=== PATIENT | female | born 1985 | race Caucasian/White ===

== ENCOUNTER 2017-07-24 06:07 | Inpatient (IN) | payer BC ==
--- NOTE | 2017-07-23 23:55 | HP ---
General Information - General Information Maternal Age: 31 Grav: 2 Para: 1 SAB: 0 IEA: 0 Estimated Due Date: 07/27/17 Determined By: Early Ultrasound Gestational Age in Weeks and Days: 38 Weeks and 6 Days Maternal Blood Type and Rh: A Positive - Results this Serology/RPR Result: Non-Reactive Rubella Result: Immune HBsAg Result: Negative HIV Result: Negative GBS Culture Result: Negative Past Medical History Delivery History: Hx C/Section, See Records Pertinent Past Medical History: See Records - History of pulmonary embolism Past Medical History Comment: History of Pulmonary embolism, Anxiety, tension Headaches Pertinent Past Surgical History: See Records - Section 2014 Pertinent Family History: See Records - Antepartal Records Antepartal Records: Reviewed, Complicated by: - Prior Section , History of PE on anticoagulation Review of Systems CV Complaint: No Respiratory: Shortness of Breath: No Gastrointestinal: No Nausea/Vomiting, Normal Bowel Movement Genitourinary: No Dysuria, No Bleeding, No Leaking Fluid Musculoskeletal: No Complaint Neurological: No Headache, No Visual Changes Movement: Normal Exam Allergies/Adverse Reactions: Allergies azithromycin Allergy (Verified 07/23/17 14:39) Hives Penicillins Allergy (Verified 07/23/17 14:39) Hives Sulfa (Sulfonamide Antibiotics) Allergy (Verified 07/23/17 14:39) Hives Temp 98.7 BP 130/70 pulse 78 RR 18 Weight 220lbs Height 69 inches - Measurements Height: 5 ft 9 in Weight: 220 lb Body Mass Index (BMI): 32.5 Pre- Weight: 160 lb - Exam Abdomen: No Upper Quadrant Pain Breast: Breast Exam Deferred CVA: No CVA Tenderness Extremities: No Edema Heart: Normal Rhythm/Heart Sounds HEENT: No Significant Findings Lungs: Clear Bilaterally Rectal: Rectal Exam Deferred Reflexes: DTR 2+ Thyroid: No Thyromegaly - Abdominal Exam Abdomen Exam: Non-Tender, Fundal Height Consistent with Dates - Membranes Membrane Status: Intact EFM Findings - External Monitor Findings Baseline Heart Rate: 140 Assessment/Plan - Reason for Visit Reason for Visit: at 39 2/7 weeks for Repeat Section and bilateral tubal ligation - Obstetrical Risk Factors Risk Factors Comment: Prior , History of PE on anticoagulation, desires sterilization - Plan Plan: Expedite C/S Delivery, Antibiotic Prophylaxis - Date/Time of Admission Date of Admission: 07/24/17 Time of Admission: 06:45
[2017-07-24] MEDS ORDERED: Sodium Citrate/Citric Acid* 15 ML UDC ONE (07:20)
[2017-07-24] MEDS ORDERED: ceFOXitin 2 GM IVPREMIX* 50 ML IVPB ONE (07:30)
[2017-07-24] MEDS ORDERED: Morphine PF AMP (0.5MG/ML)* 5 MG/10 ML AMP ONE (07:40)
[2017-07-24] MEDS ORDERED: OXYTOCIN* 10 UNITS/ML 1 ML VIAL ONE (07:40)
[2017-07-24] MEDS ORDERED: Buffered Lidocaine 0.9% SYRIN* 5 ML/SYR SYRINGE INTRADERM ONE (07:43)
[2017-07-24] MEDS ORDERED: Sodium Citrate/Citric Acid* 15 ML UDC PO ONE (07:43)
[2017-07-24] MEDS ORDERED: fentaNYL* 50 MCG/ML 2 ML VIAL (100 MCG VIAL) IV PRN (07:44)
[2017-07-24] MEDS ORDERED: Naloxone* 0.4 MG/ML 1 ML VIAL IV PRN ×2 (07:44→09:10)
[2017-07-24] MEDS ORDERED: ceFOXitin 2 GM IVPREMIX* 2 GM/50 ML BAG IVPB ONE (08:00)
[2017-07-24] MEDS ORDERED: Famotidine IV* 10 MG/ML 2 ML (20 mg) ONE (08:23)
[2017-07-24] MEDS ORDERED: Phenylephrine IV* 40 MCG/ML 10 ML SYRINGE ONE (08:24)
[2017-07-24] MEDS ORDERED: Ondansetron INJ* 2 MG/ML VIAL ONE (08:45)
[2017-07-24] MEDS ORDERED: Scopolamine PATCH Remove* 1 NOTE MISC PATCH OFF PRN (09:10)
[2017-07-24] MEDS ORDERED: DiMENhydriNATE IV* 50 MG/ML VIAL IV PUSH PRN (09:10)
[2017-07-24] MEDS ORDERED: PROCHLORPERAZINE INJ 5 MG/ML 2 ML VIAL IV PRN (09:10)
[2017-07-24] MEDS ORDERED: diPHENhydraMINE IV* 50 MG/ML 1 ml VIAL (BENADRYL) IV PRN (09:10)
[2017-07-24] MEDS ORDERED: Scopolamine 1.5 mg* PATCH TRANSDERM PRN (09:10)
[2017-07-24] MEDS ORDERED: HYDROcodone/ACETAMIN 5-325 MG* 1 TAB PO PRN ×2 (09:10)
[2017-07-24] MEDS ORDERED: Ondansetron INJ* 2 MG/ML VIAL IV PRN (09:10)
[2017-07-24] MEDS ORDERED: Nalbuphine* 20 MG/ML 1 ML VIAL IV PRN (09:10)
[2017-07-24] MEDS ORDERED: Ketorolac INJ* 30 MG/ML 1 ML VIAL ONE (09:16)
[2017-07-24] MEDS ORDERED: Witch Hazel PAD* JAR TOPICAL PRN (09:39)
[2017-07-24] MEDS ORDERED: Glycerin ADULT SUPP PR PRN (09:39)
[2017-07-24] MEDS ORDERED: Ibuprofen TAB* 600 MG PO PRN (09:39)
[2017-07-24] MEDS ORDERED: Dibucaine 1% 28.35 GM TUBE PR PRN (09:39)
[2017-07-24] MEDS ORDERED: Zolpidem TAB* 5 MG PO PRN (09:39)
[2017-07-24] MEDS ORDERED: Nalbuphine* 20 MG/ML 1 ML VIAL IV SCH (12:00)
[2017-07-24] MEDS: Simethicone TAB* 80 MG TAB.CHEW PO SCH ×3 (12:19→22:05)
[2017-07-24] MEDS: Ketorolac INJ* 30 MG/ML 1 ML VIAL IV SCH ×3 (13:25→23:19)
[2017-07-24] MEDS: Acetaminophen TAB* 325 MG PO SCH ×4 (13:51→22:06)
[2017-07-24] MEDS: Docusate CAP* 100 MG PO SCH ×2 (13:51→22:06)
[2017-07-24] MEDS: Enoxaparin(*) 40 MG/0.4 ML SYR SUBCUT SCH (16:42)
[2017-07-24] MEDS ORDERED: diPHENhydraMINE PO* 25 MG PO ONE (23:00)
[2017-07-25] MEDS ORDERED: Acetaminophen TAB* 325 MG PO PRN (00:16)
[2017-07-25] MEDS ORDERED: Ibuprofen TAB* 600 MG ONE (00:36)
[2017-07-25] MEDS: Ibuprofen TAB* 600 MG PO PRN ×4 (00:38→20:37)
[2017-07-25] MEDS: oxyCODONE/Acetamin 5/325 MG* TAB PO PRN ×4 (02:23→17:26)
--- NOTE | 2017-07-25 03:12 | OP ---
DATE OF OPERATION: 07/24/17 - ROOM #117 DATE OF : 81 SURGEON: Amari Doty MD INFECTION PREVENTION PRACTITIONER: Ro Subramanian MD ANESTHESIA: Spinal. PRE-OP DIAGNOSES: at 39 weeks, prior section, desires sterilization, in breech presentation. POST-OP DIAGNOSES: at 39 weeks, prior section, desires sterilization, in breech presentation. OPERATIVE PROCEDURE: Repeat low transverse section and a bilateral tubal ligation via modified [place] method. IV FLUIDS: She received 3000 cc of IV crystalloid fluid. URINE OUTPUT: Her urine output was clear. SPECIMEN SENT TO PATHOLOGY: Portions of the right and left fallopian tube. ESTIMATED BLOOD LOSS: 1500 cc. FINDINGS: Delivery of a female infant weighing 8 pounds 4 ounces with Apgars of 7 and 9, in [place] breech presentation with a breech extraction over clear fluid. The placenta was grossly intact with a 3-vessel cord noted. The uterus , adnexa, bowel and bladder were within normal limits. There were no complications. DESCRIPTION OF PROCEDURE: The patient was taken to the operating room where she was identified. She was placed on the operating room table where a spinal anesthetic was obtained without difficulty. She was then placed in the supine position with a leftward tilt, prepped and draped in a normal sterile fashion. A Pfannenstiel skin incision was made with a knife and carried through to the underlying layer of fascia. The fascia was nicked in the midline and extended laterally with curved Rogel scissors. The fascia was grasped superiorly and inferiorly with Tyler clamps and dissected off sharply from the rectus muscle. The rectus muscle was in the midline bluntly. The peritoneum was identified, grasped with pickups, and entered sharply with Metzenbaum scissors and then extended inferiorly and superiorly bluntly. A bladder blade was inserted in the patient's abdomen. A low transverse skin incision was made with a knife, extended laterally with bandage scissors and amniotic fluid was noted to be clear. The infant's breech was then grasped and delivered through breech extraction. The cord was clamped and cut. The was handed off to awaiting chemical sprayer. Cord gas and cord bloods were obtained. The placenta was removed manually. The uterus was then closed in situ using 0 Polysorb suture in a running locked fashion with the second imbricating layer of 0 Polysorb suture with good hemostasis noted. At this point, we proceeded to remove blood and clots from the abdomen using moist laparotomy sponges and suction. All the instruments were removed from the patient's abdomen. At this point, I proceeded to perform a bilateral tubal ligation via a modified [place] method using 3-0 Polysorb sutures. The portions of the right and left fallopian tubes were sent to pathology. The uterine incision was then noted to be hemostatic. All the instruments were removed from the patient's abdomen. The peritoneum was closed using 3-0 Polysorb suture in a running fashion. The fascia was closed using 0 Polysorb suture in a running fashion and the skin was closed with a 4-0 Monocryl subcuticular stitch. Patient tolerated the procedure well. Sponge, lap and needle counts were correct x2. She was then transferred to recovery room area in stable condition. [id number]/[facility] #: [id number] MTDD
[2017-07-25 07:03] LABS: ABS Basophils 0.1 10^3/ul (0-0.2); ABS Eosinophils 0.1 10^3/ul (0-0.6); ABS Lymphocytes 2.4 10^3/ul (1.0-4.8); ABS Neutrophils 11.7 10^3/ul (1.5-7.7); ABS Nucleated RBC 0 10^3/ul; Eosinophil % 0.8 % (0-6); Hematocrit 31 % (35-47); Hemoglobin 10.8 g/dl (12.0-16.0); Lymphocyte % 15.8 % (25-47); Mean Corpuscular HGB Conc 34 g/dl (31-36); Mean Corpuscular Hemoglobin 32 pg (27-31); Mean Corpuscular Volume 92 fL (80-97); Mean Platelet Volume 10 um3 (7.4-10.4); Nucleated Red Blood Cells % 0; Platelet Count 123 10^3/ul (150-450); Red Blood Count 3.39 10^6/ul (4.0-5.4); Red Cell Distribution Width 13 % (10.5-15); White Blood Count 15.3 10^3/ul (3.5-10.8)
[2017-07-25] MEDS ORDERED: Ferrous Gluconate TAB* 324 MG TAB PO SCH (09:00)
[2017-07-25] MEDS: Simethicone TAB* 80 MG TAB.CHEW PO SCH ×4 (09:08→20:38)
[2017-07-25] MEDS: Docusate CAP* 100 MG PO SCH ×3 (09:08→20:37)
[2017-07-25] MEDS ORDERED: LoraTADine TAB(NF) 10 MG TAB (AUTOSUB to CETIRIZINE) PO SCH ×2 (13:00→21:00)
[2017-07-25] MEDS: Enoxaparin(*) 40 MG/0.4 ML SYR SUBCUT SCH (17:28)
[2017-07-25] MEDS ORDERED: Sertraline* 50 MG TAB PO SCH (21:00)
[2017-07-26] MEDS: Ibuprofen TAB* 600 MG PO PRN ×4 (03:00→20:14)
[2017-07-26] MEDS: Docusate CAP* 100 MG PO SCH ×3 (08:26→21:06)
[2017-07-26] MEDS: Simethicone TAB* 80 MG TAB.CHEW PO SCH ×4 (08:26→21:06)
[2017-07-26] MEDS: oxyCODONE/Acetamin 5/325 MG* TAB PO PRN ×2 (10:47→23:35)
[2017-07-26] MEDS: Enoxaparin(*) 40 MG/0.4 ML SYR SUBCUT SCH (15:56)
[2017-07-26] MEDS ORDERED: Sertraline* 50 MG TAB PO SCH (21:00)
[2017-07-27 08:15] VITALS: BP 115/66
[2017-07-27] MEDS: Simethicone TAB* 80 MG TAB.CHEW PO SCH (08:17)
[2017-07-27] MEDS: Docusate CAP* 100 MG PO SCH (08:17)
[2017-07-27] MEDS: Ibuprofen TAB* 600 MG PO PRN (08:17)
[2017-07-27] MEDS: oxyCODONE/Acetamin 5/325 MG* TAB PO PRN (08:18)
== END 2017-07-27 11:16 | disposition home or self-care (01) | DRG 540 ==
LOC: MCHOB 06:07
PROVIDERS: ADMIT Obstetrics & Gynecology; ATTEND Obstetrics & Gynecology
PROC: 4A1HX4Z Monitoring of Products of Conception, Cardiac Electrical Activity, External Approach (ICD-10-PCS; 2017-07-24)
PROC: 0UB70ZZ Excision of Bilateral Fallopian Tubes, Open Approach (ICD-10-PCS; 2017-07-24)
PROC: 10D00Z1 Extraction of Products of Conception, Low, Open Approach (ICD-10-PCS; principal; 2017-07-24 07:45)
DX: O34.211 Maternal care for low transverse scar from previous cesarean delivery (principal); F41.9 Anxiety disorder, unspecified; O69.1XX0 Labor and delivery complicated by cord around neck, with compression, not applicable or unspecified; O32.1XX0 Maternal care for breech presentation, not applicable or unspecified; O99.344 Other mental disorders complicating childbirth; Z37.0 Single live birth; Z86.711 Personal history of pulmonary embolism; Z88.0 Allergy status to penicillin; Z88.1 Allergy status to other antibiotic agents; Z88.2 Allergy status to sulfonamides; Z30.2 Encounter for sterilization; Z3A.39 39 weeks gestation of pregnancy
CPT/HCPCS: 36415; 85025; 88302; A9270-GY; J0694; J1200; J1650; J1885; J2300; J2405; J2590